=== PATIENT | female | born 1980 | race Caucasian/White ===

== ENCOUNTER 2017-02-07 14:10 | Emergency (ER) | payer MEDICAID ==
[~2017-02-07] VITALS: Ht 160 cm; Wt 86.6 kg
[2017-02-07 19:32] VITALS: BP 125/74
== END 2017-02-07 19:32 | disposition home or self-care (01) ==
LOC: ED 14:10
DX: J02.8 Acute pharyngitis due to other specified organisms (principal)

== ENCOUNTER 2019-01-29 04:59 | Emergency (ER) | payer MEDICAID ==
[~2019-01-29] VITALS: Ht 165.1 cm; Wt 78.9 kg
[2019-01-29 05:04] VITALS: Ht 165.1 cm; Wt 78.9 kg
[2019-01-29 06:34] VITALS: BP 135/58
== END 2019-01-29 06:34 | disposition home or self-care (01) ==
LOC: ED 04:59
DX: S39.012A Strain of muscle, fascia and tendon of lower back, initial encounter (principal); X58.XXXA Exposure to other specified factors, initial encounter; Y93.89 Activity, other specified; Y92.89 Other specified places as the place of occurrence of the external cause; Y99.8 Other external cause status
CPT/HCPCS: J1885; J2270; J2405